=== PATIENT | female | born 1990 | race Caucasian/White ===

== ENCOUNTER → 2016-05-22 | Outpatient (CLI) | payer OTHER ==
[~2016-05-22] MED LIST: CNC/54 PO; LEVOTAB3 PO; SERT100T PO
== END | disposition home or self-care (01) ==
LOC: C.PAPS 09:44
PROVIDERS: ATTEND Obstetrics & Gynecology
DX: D06.9 Carcinoma in situ of cervix, unspecified (principal); Z12.4 Encounter for screening for malignant neoplasm of cervix

== ENCOUNTER → 2016-11-04 | Outpatient (CLI) | payer OTHER | END | disposition home or self-care (01) | LOC: C.PAPS 08:29 | PROVIDERS: ATTEND Obstetrics & Gynecology | DX: D06.9 Carcinoma in situ of cervix, unspecified (principal) ==

== ENCOUNTER 2017-07-04 04:42 | Emergency (ER) | payer OTHER ==
[~2017-07-04] VITALS: Ht 152.4 cm; Wt 62.1 kg
[2017-07-04 04:53] VITALS: TEMP 36.8; Ht 152.4 cm; Wt 62.1 kg
[2017-07-04] MEDS ORDERED: CEPHALEXIN 500MG HOME PACK 1 EA BTL PO ONE (05:15)
[2017-07-04] MEDS ORDERED: PHENAZOPYRIDINE HOME PACK 200 MG VIAL PO ONE (05:15)
[2017-07-04] MEDS ORDERED: BUPRTAB51 PO (05:47)
[2017-07-04] MEDS ORDERED: PHEN-876 PO (06:20)
[2017-07-04] MEDS ORDERED: CEPH500C PO (06:20)
[2017-07-04] MEDS ORDERED: KETOROLAC TROMETHAMINE 60 MG/2 ML VIAL IM STA (06:21)
--- NOTE | 2017-07-04 06:28 | EMERGENCY ROOM VISIT NOTE ---
History First contact with patient: 04:53 Chief Complaint: URINARY SYMPTOMS Stated Complaint: UTI SYMPTOMS,BLOOD/TISSUE IN URINE Nursing Triage Summary: pt has pmhx of uti, pt c/o urgency, frequency, burning, bladder hurts, peeing blood and tissue History of Present Illness The patient is a 26 year old female who presents to the Emergency Room with complaints of urinary frequency, urgency and dysuria with hematuria for the past day. Patient has a history of UTIs. She has had 2 this past year. Patient denies back pain, fevers, vomiting,Nausea, vomiting, flank pain, vaginal itching or discharge. Patient took an Pyridium. Review of Systems A 6 system review of systems was completed with positives and pertinent negatives listed in the HPI. Past Medical/Surgical History UTIs Social History Smoking Status: Never Smoker Smokeless Tobacco Use: No Marital Status: in relationship Current/Historical Medications Scheduled Bupropion (Wellbutrin-Xl), 300 MG PO QAM Cephalexin Monohydrate (Keflex), 500 MG PO BID Levonorgestrel-Ethinyl Estradi (Jolessa), 1 TAB PO QAM Methylphenidate Hcl (Concerta), 54 MG PO QAM Phenazopyridine HCl (Pyridium), 200 MG PO TID Physical Exam Vital Signs Date Time Temp Pulse Resp B/P (MAP) Pulse Ox O2 Delivery O2 Flow Rate FiO2 18 04:53 36.8 90 18 145/88 97 Room Air Physical Exam VITALS: Vitals are noted on the nurse's note and reviewed by myself. Vital signs stable. GENERAL: Pleasant female, in no acute distress, nondiaphoretic, well-developed well-nourished. SKIN: Capillary reflex less than 2 seconds. HEENT: Normocephalic. PERRLA. EOMI. Nares patent. Mucous membranes moist. Neck is supple without nuchal rigidity. HEART: Regular rate and rhythm without murmurs gallops or rubs. LUNGS: Clear to auscultation bilaterally without wheezes, rales or rhonchi. No retractions or accessory muscle use. ABDOMEN: Positive bowel sounds x 4. Normal tympanic percussion. Soft, nontender, without masses or organomegaly. Mock sign negative. No guarding or rebound tenderness no CVA tenderness. MUSCULOSKELETAL: No gross musculoskeletal defects. No pedal edema. No calf tenderness. NEURO: Patient was alert and oriented to person place and time. Normal sensation to light and sharp touch. No focal neurological deficits. Medical Decision & Procedures Laboratory Results Test 07/04/17 05:10 Urine Color ORANGE Urine Appearance CLOUDY (CLEAR) Urine pH (4.5-7.5) Urine Specific [place] 1.007 (1.000-1.030) Urine Protein NEG (NEG) Urine Glucose (UA) (NEG) Urine Ketones (NEG) Urine Occult Blood (NEG) Urine Nitrite (NEG) Urine Bilirubin (NEG) Urine Urobilinogen (NEG) Urine Leukocyte Esterase (NEG) Urine RBC 10-30 /hpf (0-4) Urine WBC 10-30 /hpf (0-5) Urine Epithelial Cells >30 /lpf (0-5) Urine Bacteria 1+ (NEG) Urine Test NEG (NEG) ED Course Prior records reviewed and summarized as above. Triage Nursing notes reviewed. Additional history obtained from boyfriend. The patient's history was concerning for urinary symptom Differential diagnosis: Etiologies such as UTI, cystitis, renal colic, pyelonephritis as well as others were entertained.. Physical examination: The physical examination was consistent with UTI ER treatment provided: Keflex, Pyridium On reassessment the patient felt better. Diagnostics interpreted by me: The labs revealed urine consistent with infection and sent for culture. Patient was also symptomatic. Negative hCG This appears to be UTI. Patient is afebrile nontoxic. She had no CVA tenderness. She is advised to take medications as directed and drink plenty of fluids to flush her bladder. She is advised follow-up family care in a few days here in the ER sooner for abdominal pain, fevers, vomiting, flank pain, worsening signs or symptoms or as needed. By the evaluation outlined above emergent etiologies such as pyelonephritis, as well as others were deemed relatively unlikely. The pt informed about the findings as listed above. All questions were answered and pleased with the treatment. Return instructions were outlined and the patient was discharged in stable condition. Outpatient prescription management: Keflex, Pyridium Referral: The patient was referred back to primary care physician for follow-up in 2 to 3 days for a recheck of the current condition. The chart was completed utilizing [employer] voice recognition software. Grammatical errors, random word insertions, pronoun errors, and incomplete sentences are an occassional consequence of this system due to software limitations, ambient noise, and hardware issues. Any formal questions or concerns about the content, text, or information contained within the body of this dictation should be directly addressed to the physician carpenter assistant installer for clarification. Medical Decision As above Medication Reconcilliation Current Medication List: was personally reviewed by me Blood Pressure Screening Patient's blood pressure: Normal blood pressure Impression Primary Impression: Urinary tract infection Departure Information Dispostion Home / Self-Care Condition GOOD Prescriptions Phenazopyridine HCl (Pyridium) 200 Mg Tab 200 MG PO TID for 2 Days, #6 TAB Prov: Betty Siddiqi .MARYLU 07/04/17 Cephalexin Monohydrate (Keflex) 500 Mg Cap 500 MG PO BID for 7 Days, #14 CAP Prov: Betty Siddiqi .MARYLU 07/04/17 Referrals Darya Hopkins C.R.N.P. (PCP) Patient Instructions My [facility] Additional Instructions Keflex 500 mg: Take one pill twice daily for 7 days for your urine infection. All antibiotics can cause diarrhea. If this occurs and you feel worse or it does not resolve in 1-2 days follow up with your doctor or return to the Emergency Department as this could be signs of serious underlying problems. Any medication can cause an allergic reaction, stop the pills immediately and return to the ER for rash, hives, breathing difficulties, or swelling. Pyridium 200mg: Take one pill three times daily as needed for urinary discomfort. This medication will turn your urine orange. This is normal and nothing to be concerned about. Ibuprofen(Motrin, Advil) may be used for fever or pain. Use 600mg every six hours as needed. Take with food. Avoid using more than 2400mg in a 24 hour period. Do not use 2400mg per day for more than three consecutive days without physician direction. Prolonged inappropriate use can lead to stomach upset or ulcers. (AND/OR) Acetaminophen(Tylenol) may be used for fever or pain. Use 1000mg every six hours as needed. Avoid using more than 3000mg in a 24 hour period. Rest and drink plenty of fluids as tolerated. Slow sips of water or sports drinks are recommended instead of large amounts all at once. Continue current medications. Once your stomach is settled start with a clear liquid diet (jello, soup broth, etc.) and then advance as tolerated. You should avoid full, heavy meals for about 24 hrs from the time your symptoms resolved. Return to the ER immediately for worsening or persistent abdominal/back pain, vomiting, fevers, worsening of your condition, or as needed. Follow up with your primary physician within 2-3 days for a recheck of the current condition. Problem Qualifiers Primary Impression: Urinary tract infection Urinary tract infection type: acute cystitis Hematuria presence: with hematuria Qualified Codes: N30.01 - Acute cystitis with hematuria
[2017-07-04 06:51] VITALS: BP 133/78; PULSE 82; O2SAT 99
--- NOTE | 2017-07-06 11:17 | Pharmacy Progress Note ---
ED Pharmacist Culture FollowUp Date of Service: July 06, 2017. Patient was sent home with a prescription for Cephalexin 500 mg BID x 7 days, which should cover the E. coli growing from the patient's urine culture.
== END 2017-07-04 06:51 | disposition home or self-care (01) ==
LOC: C.EDB 04:43
DX: N39.0 Urinary tract infection, site not specified (principal); Z79.899 Other long term (current) drug therapy

== ENCOUNTER 2024-05-20 07:56 | Inpatient (IN) ==
--- NOTE | 2024-05-20 08:14 | History & Physical Report ---
Date of Service May 20, 2024 Assessment & Plan (1) Insulin controlled gestational diabetes mellitus (GDM) during : (2) Obesity affecting , antepartum: (3) Encounter for induction of labor: Plan -Vital Signs ; BP: 153/83 likely contributed by anxiety; will monitor - Category Tracing I -Will start Pitocin -Epidural when she desires -GBS: negative -Labs ordered Admission and Anticipated Discharge Date Admission Date: May 20, 2024 History of Present Illness Chief Complaint: Induction of labor Primary Care Provider: SILAS Friend Patient is a 33 yo female currently at 39+2 WGA with an SERGO 05/26/24 as determined by LMP who is here for induction. Her was complicated by Obesity, and Gestational Diabetes Mellitus Contractions present; movement present; no fluid loss; no bloody show External FHT and external uterine monitors used; category I tracing; normal FHT variability Had regular appointments with OB. Allergies Allergy/AdvReac Type Severity Reaction Status Date / Time latex Allergy Mild Hives Verified 05/20/24 08:40 Sulfa (Sulfonamide Allergy Unknown Unknown Verified 05/20/24 08:40 Antibiotics) adhesive tape AdvReac Mild Rash Verified 05/19/24 08:35 Home Medications Medication Instructions Recorded Confirmed Type prenat.vits,ok,xpi-zhye-xbfey 1 tab PO 1XD 10/09/23 05/20/24 History acetone (urine) test (Ketone Urine #50 ea 03/25/24 05/19/24 Rx Test strips) blood sugar diagnostic (OneTouch #150 ea 03/25/24 05/19/24 Rx Verio test strips) blood-glucose meter (OneTouch #1 ea 03/25/24 05/19/24 Rx Verio Reflect Meter) blood-glucose sensor (Dexcom G7 #3 ea 03/25/24 05/19/24 Rx Sensor device) lancets 33 gauge (OneTouch Delica #150 ea 03/25/24 05/19/24 Rx Plus Lancet) pen needle, diabetic 32 gauge x #100 ea 04/05/24 05/19/24 Rx 5/32" (BD Ultra-Fine Aura Pen Needle) insulin NPH isoph U-100 human 100 55 unit subcut .at bed time 05/20/24 05/20/24 History unit/mL (3 mL) subcutaneous pen (Novolin N FlexPen) Past Med/Surg History Problem List (Updated 05/20/24 @ 10:12 by Jennifer Mas MD, FACOG) Encounter for induction of labor Obesity affecting , antepartum Insulin controlled gestational diabetes mellitus (GDM) during Gestational diabetes mellitus (GDM) affecting , antepartum Encounter for anatomic survey Supervision of normal intrauterine in primigravida Alcohol intoxication (Acute) Medical History (Updated 05/20/24 @ 10:12 by Jennifer Mas MD, FACOG) Asthma reports had asthma as a child. does not have inhaler or take any medication for it. ADHD previously on concerta. stopped with positive test Surgical History Status post colposcopy S/P colonoscopy H/O oral surgery Family History Father Heart disease Grandmother (Maternal) Glioblastoma Social History (Updated 05/20/24 @ 08:43 by Zakiya De La Rosa RN) Smoking Status: Never smoker Do You Dip or Chew Tobacco: No; Hx Alcohol Use: No Hx Substance Use: No Preferred Language: Croatian Communication Ability: Effective Visual Impairment: Limited Hearing Ability: Normal Golf Shoe Spike Assembler Required: No Beliefs That Will Affect Care: None marital status: marital status details: Winston (31) [phone] Current Living Situation: Spouse Current Living Situation Comment: lives with spouse, 2 dogs, 1 cat, spouse changes litter. current occupational status: unemployed Other Information That Helps Us Care for You: No Feels Safe at Home: Yes Safety Concerns: Feels Safe At This Time Diet: low carbohydrate and regular Assistive Devices: Glasses Review of Systems Review of Systems: As per HPI Physical Exam Physical Exam: General: Alert and oriented. No acute distress CV: Regular rate and rhythm. No murmurs. Respiratory: CTA bilaterally. No rhonchi, wheezes, or crackles. No increased work of breathing. Abdomen: Gravid; Soft, nontender upon palpation Lower extremities: No LE edema. No deep calf pain. Mayco's negative bilaterally. Supervising Physician Co-Signing Physician Notes Resident Physician Supervision Note: I was present with Dr. Silver during the history and exam. I discussed the case with the resident and agree with the findings and plan as documented in the note. Any exceptions or clarifications are listed here: 33yo at 39+wks ega for planned induction for GDM on insulin, also suspected LGA. She denies rom, or vb. +FM. Did have some ctx overnight. Desires to proceed with induction, aware of plan for pitocin and will try to place ramirez ripening balloon after exam noted unchanged from yesterday, sve ft/100/-2. Exam, abd soft gravid nt efw 8- 9#. fhts categ 1. toco irregular. PROCEDURE: sse cx visualized, grasped on ant lip with ring forcep, ramirez not able to be passed through os and procedure aborted. Admit, labs, bsgs per order. fhts categ 1. start pitocin, arom when appropriate. Documented By: Jennifer Mas MD, FACOG
[2024-05-20] MEDS ORDERED: LIDOCAINE 1% LOCAL 20 ML VIAL INFIL PRN (08:56)
[2024-05-20] MEDS ORDERED: CALCIUM CARBONATE 500 MG CHEWABLE TAB PO PRN (08:56)
[2024-05-20] MEDS ORDERED: OXYTOCIN 30 UNITS/NSS 30 UNITS/500 ML BAG IV PRN (08:56)
[2024-05-20] MEDS: LACTATED RINGER'S 1,000 ML IV PRN (09:23)
[2024-05-20] MEDS: OXYTOCIN 30 UNITS/NSS 30 UNITS/500 ML BAG IV PRN (09:24)
[2024-05-20 10:11] LABS: Hematocrit (blood only) 35.3 % (37.0-47.0); Hemoglobin 11.9 g/dl (12.0-16.0); Mean Corpuscular Hemoglobin 28.5 pg (25.0-34.0); Mean Corpuscular Hgb Conc 33.7 g/dL (32.0-36.0); Mean Corpuscular Volume 84.7 fL (80.0-100.0); Platelet Count 326 K/uL (130-400); RDW Coefficient of Variation 13.2 % (11.5-14.5); RDW Standard Deviation 41.1 fL (36.4-46.3); Red Blood Count 4.17 M/uL (4.20-5.40); White Blood Count 17.14 K/ul (4.8-10.8)
[2024-05-20 10:32] LABS: Albumin Globulin Ratio 1.2 (0.9-2); Albumin Level 3.8 gm/dl (3.4-5.0); BUN Creatinine Ratio 13.3 (10-20); Bilirubin Direct 0.1 mg/dl (0-0.2); Bilirubin,Total 0.3 mg/dl (0.2-1.0); Calcium 9.4 mg/dl (8.6-10.3); Creatinine Clr Calc Pharmacy 104.2 ml/min; Globulin 3.3 gm/dl (2.5-4.0); Potassium 4.1 mmol/L (3.5-5.1); Total Protein 7.1 gm/dl (6.0-8.3)
[2024-05-20] MEDS ORDERED: SODIUM CHLORIDE 0.9% 100 ML IV PRN (10:48)
[2024-05-20] MEDS: ONDANSETRON INJ 2 MG/ML 2 ML VIAL IV PRN (16:24)
[2024-05-20] MEDS ORDERED: LIDOCAINE 2% MPF LOCAL 5 ML VIAL EPI PRN (16:53)
[2024-05-20] MEDS ORDERED: ONDANSETRON INJ 2 MG/ML 2 ML VIAL IV PRN (16:53)
[2024-05-20] MEDS ORDERED: BUPIVACAINE 0.25% PF 30 ML VIAL EPI PRN (16:53)
[2024-05-20] MEDS ORDERED: ePHEDrine sulfate 50 MG/ML AMP IV PRN (16:53)
[2024-05-20] MEDS ORDERED: ROPIVACAINE 0.5% PF 5 MG/ML 20 ML VIAL EPI PRN (16:53)
[2024-05-20] MEDS ORDERED: NALBUPHINE HCL INJ 10 MG/ML AMP IV PRN (16:53)
[2024-05-20] MEDS ORDERED: fentaNYL citrate PF 100 MCG/2 ML VIAL EPI PRN (16:53)
[2024-05-20] MEDS ORDERED: diphenhydrAMINE 50 MG/ML VIAL IV PRN (16:53)
[2024-05-20] MEDS ORDERED: SODIUM CHLORIDE 0.9% PF INJ 10 ML VIAL EPI PRN (16:53)
--- NOTE | 2024-05-20 16:55 | Anesthesiology Consultation ---
Date of Service May 20, 2024 Assessment & Plan (1) Encounter for pre-operative examination: Chart Review Chart Review: Patient NOT seen in Pre Admission Testing and Acceptable Risk for Labor Epidural Consults Requested none History Height/Weight Height: 5 ft Weight: 99.79 kg Allergies Allergy/AdvReac Type Severity Reaction Status Date / Time latex Allergy Mild Hives Verified 05/20/24 08:40 Sulfa (Sulfonamide Allergy Unknown Unknown Verified 05/20/24 08:40 Antibiotics) adhesive tape AdvReac Mild Rash Verified 05/19/24 08:35 Medications Home Medications Medication Instructions Recorded Confirmed Last Taken prenat.vits,ok,cpr-crdr-alfah 1 tab PO 1XD 10/09/23 05/20/24 05/19/24 acetone (urine) test (Ketone Urine #50 ea 03/25/24 05/19/24 Unknown Test strips) blood sugar diagnostic (OneTouch #150 ea 03/25/24 05/19/24 Unknown Verio test strips) blood-glucose meter (OneTouch #1 ea 03/25/24 05/19/24 Unknown Verio Reflect Meter) blood-glucose sensor (Dexcom G7 #3 ea 03/25/24 05/19/24 Unknown Sensor device) lancets 33 gauge (OneTouch Delica #150 ea 03/25/24 05/19/24 Unknown Plus Lancet) pen needle, diabetic 32 gauge x #100 ea 04/05/24 05/19/24 Unknown 5/32" (BD Ultra-Fine Aura Pen Needle) insulin NPH isoph U-100 human 100 55 unit subcut .at bed time 05/20/24 05/20/24 05/19/24 21:00 unit/mL (3 mL) subcutaneous pen (Novolin N FlexPen) Active Medications Generic Name Dose Route Start Last Admin Trade Name Freq PRN Reason Stop Dose Admin Lactated Ringer's 1,000 mls @ 125 mls/hr 05/20/24 08:56 05/20/24 17:00 Lr IV 05/21/24 08:55 125 mls/hr .Q8H PRN Administration L&D Protocol Protocol Oxytocin 30 units in 500 mls @ 15 mls/hr 05/20/24 08:56 05/20/24 17:15 Pitocin 30 Units/Nss IV 05/22/24 08:55 0.9 units/hr .Q24H PRN 15 mls/hr Labor Induction/Augmentation Titration Protocol 0.9 UNITS/HR Ondansetron HCl 4 mg 05/20/24 16:15 05/20/24 16:24 Ondansetron Inj 2 Mg/Ml 2 Ml Vial IV 06/19/24 16:14 4 mg Q4H PRN Administration Nausea Past Medical History Medical History (Updated 05/20/24 @ 16:55 by Miguel Deshpande MD) Encounter for pre-operative examination Asthma reports had asthma as a child. does not have inhaler or take any medication for it. ADHD previously on concerta. stopped with positive test Exercise / Class Metabolic Activity II 4-5 Yardwork/Stairs/Walk up hill Past Family History Family History Father Heart disease Grandmother (Maternal) Glioblastoma Past Surgical History Surgical History Status post colposcopy S/P colonoscopy H/O oral surgery Social History Smoking Status: Never smoker Do You Dip or Chew Tobacco: No Hx Alcohol Use: No Hx Substance Use: No Physical Exam Vital Signs Last Vital Signs Temp 37.0 C 05/20/24 17:00 Pulse 72 05/20/24 17:37 Resp 18 05/20/24 17:00 BP 152/69 H 05/20/24 17:37 Pulse Ox 99 05/20/24 17:36 Testing Laboratory Results 05/20/24 09:26 05/20/24 09:26 Blood Type A Positive 05/20/24 09:26 Antibody Screen NEGATIVE 05/20/24 09:26 05/20/24 05/20/24 05/20/24 15:54 14:35 12:31 POC Glucose 116 H 119 H 85 05/20/24 08:06 POC Glucose 138 H
--- NOTE | 2024-05-20 16:55 | Labor Progress Brief Note ---
Date of Service May 20, 2024 Subjective feeling pain with ctx, states she is exhausted Assessment & Plan (1) Encounter for induction of labor: (2) Insulin controlled gestational diabetes mellitus (GDM) during : Plan no cx change. suspect adhesions but pt unable to tolerate attempt to manually lyse, which is understandable. given her exhaustion as well, rec epidural. she has been hesitant to consider. she will consider and let me know. Admission and Anticipated Discharge Date Admission Date: May 20, 2024 Physical Exam Constitutional: WD/WN, vitals as above Genitourinary: Manual OB Exam: + cervical dilation fingertip (feels scarred, tried to breakdown but pt cannot tolerate), + cervical effacement 100%, + station -1 and + amniotic fluid (srom) clear OB Exam Monitor Tracing: + external FHT monitor used, + external uterine monitor used (q3-4), + category I and + normal FHT variability Results & Data Vital Signs (Past 12 Hours) Vital Signs Temp Pulse Resp BP 05/20/24 16:39 66 05/20/24 16:39 135/64 05/20/24 16:24 68 05/20/24 16:24 150/67 H 05/20/24 16:09 74 05/20/24 16:09 163/78 H 05/20/24 15:54 75 05/20/24 15:54 137/80 05/20/24 15:40 68 05/20/24 15:40 169/78 H 05/20/24 15:26 72 05/20/24 15:26 183/81 H 05/20/24 14:39 74 05/20/24 14:39 148/74 H 05/20/24 14:25 75 05/20/24 14:25 137/76 05/20/24 14:20 98.4 F 05/20/24 14:09 84 05/20/24 14:09 140/67 05/20/24 13:54 85 05/20/24 13:54 141/68 H 05/20/24 13:39 74 05/20/24 13:39 136/63 05/20/24 13:24 74 05/20/24 13:24 148/72 H 05/20/24 12:54 76 05/20/24 12:54 140/78 05/20/24 12:39 78 05/20/24 12:39 133/76 05/20/24 12:25 75 05/20/24 12:25 137/79 05/20/24 12:10 67 05/20/24 12:10 132/70 05/20/24 11:54 72 05/20/24 11:54 142/63 H 05/20/24 11:39 70 05/20/24 11:39 135/74 05/20/24 11:25 71 05/20/24 11:25 144/74 H 05/20/24 11:09 68 05/20/24 11:09 139/80 05/20/24 11:00 16 05/20/24 11:00 98.1 F 16 05/20/24 10:55 71 05/20/24 10:55 146/74 H 05/20/24 10:40 72 05/20/24 10:40 141/75 H 05/20/24 10:24 71 05/20/24 10:24 129/78 05/20/24 10:09 73 05/20/24 10:09 121/59 L 05/20/24 09:54 88 05/20/24 09:54 154/74 H 05/20/24 09:25 81 05/20/24 09:25 135/76 05/20/24 09:24 87 05/20/24 09:24 135/75 05/20/24 08:45 91 H 18 153/83 H 05/20/24 08:27 91 H 153/83 H 05/20/24 08:17 90 167/82 H 05/20/24 08:10 18 05/20/24 08:10 98.4 F 18 Coding Level of Care Code None Diagnoses Encounter for induction of labor Z34.90 Insulin controlled gestational diabetes mellitus (GDM) during O24.414
[2024-05-20] MEDS: SODIUM CHLORIDE 0.9% PF INJ 10 ML VIAL EPI STA (17:15)
[2024-05-20] MEDS: SODIUM CHLORIDE 0.9% PF INJ 10 ML VIAL ONE (17:16)
[2024-05-20] MEDS: LIDOCAINE 2%/EPINEPHRINE 1:200,000 20 ML PF ONE (17:16)
[2024-05-20] MEDS: BUPIVACAINE 0.25% PF 30 ML VIAL ONE (17:16)
[2024-05-20] MEDS: fentANYL 2 MCG/ML BUPIVacaine 0.125%-NSS 100ML BAG ONE (17:16)
[2024-05-20] MEDS: BUPIVACAINE 0.25% PF 30 ML VIAL EPI STA (17:16)
[2024-05-20] MEDS: fentaNYL citrate PF 100 MCG/2 ML VIAL ONE (17:16)
[2024-05-20] MEDS: ePHEDrine sulfate 50 MG/ML AMP ONE (17:16)
[2024-05-20] MEDS: fentaNYL citrate PF 100 MCG/2 ML VIAL EPI STA (17:16)
[2024-05-20] MEDS: LIDOCAINE 2%/EPINEPHRINE 1:200,000 20 ML PF EPI STA (17:45)
[2024-05-20] MEDS: fentANYL 2 MCG/ML BUPIVacaine 0.125%-NSS 100ML BAG EPI PRN (17:45)
--- NOTE | 2024-05-20 18:51 | Labor Progress Brief Note ---
Date of Service May 20, 2024 Subjective pt now comfortable with epidural Assessment & Plan (1) Encounter for induction of labor: (2) Insulin controlled gestational diabetes mellitus (GDM) during : Plan will see how cx progresses from here. enc pt to rest. categ 1 fhts. c/w pit. Admission and Anticipated Discharge Date Admission Date: May 20, 2024 Physical Exam Constitutional: WD/WN, vitals as above Genitourinary: Manual OB Exam: + cervical dilation 4 cm (adhesions broken down), + cervical effacement 100% and + station -1 OB Exam Monitor Tracing: + external FHT monitor used, + external uterine monitor used (q2-4, pit at 19), + category I (+scalp stim response) and + normal FHT variability Results & Data Vital Signs (Past 12 Hours) Vital Signs Temp Pulse Resp BP Pulse Ox 05/20/24 18:46 99 05/20/24 18:46 73 05/20/24 18:41 99 05/20/24 18:41 66 05/20/24 18:39 73 05/20/24 18:39 113/56 L 05/20/24 18:36 99 05/20/24 18:36 76 05/20/24 18:31 99 05/20/24 18:31 83 05/20/24 18:26 98 05/20/24 18:26 69 05/20/24 18:23 67 05/20/24 18:23 114/59 L 05/20/24 18:21 99 05/20/24 18:21 71 05/20/24 18:16 99 05/20/24 18:16 76 05/20/24 18:11 99 05/20/24 18:11 78 05/20/24 18:08 80 05/20/24 18:08 138/69 05/20/24 18:06 98 05/20/24 18:06 82 05/20/24 18:01 99 05/20/24 18:01 74 05/20/24 17:56 99 05/20/24 17:56 79 05/20/24 17:53 75 05/20/24 17:53 133/63 05/20/24 17:51 98 05/20/24 17:51 71 05/20/24 17:51 70 05/20/24 17:51 133/61 05/20/24 17:49 65 05/20/24 17:49 137/60 05/20/24 17:46 98 05/20/24 17:46 77 05/20/24 17:46 160/66 H 05/20/24 17:43 59 L 05/20/24 17:43 142/63 H 05/20/24 17:41 98 05/20/24 17:41 79 05/20/24 17:37 72 05/20/24 17:37 152/69 H 05/20/24 17:36 99 05/20/24 17:36 66 05/20/24 17:35 70 05/20/24 17:35 142/69 H 05/20/24 17:31 99 05/20/24 17:31 84 05/20/24 17:26 99 05/20/24 17:26 64 05/20/24 17:21 99 05/20/24 17:21 66 05/20/24 17:16 99 05/20/24 17:16 70 05/20/24 17:12 64 05/20/24 17:12 152/69 H 05/20/24 17:11 100 05/20/24 17:11 63 05/20/24 17:00 18 05/20/24 17:00 98.6 F 18 05/20/24 16:56 63 05/20/24 16:56 158/78 H 05/20/24 16:39 66 05/20/24 16:39 135/64 05/20/24 16:24 68 05/20/24 16:24 150/67 H 05/20/24 16:09 74 05/20/24 16:09 163/78 H 05/20/24 15:54 75 05/20/24 15:54 137/80 05/20/24 15:40 68 05/20/24 15:40 169/78 H 05/20/24 15:26 72 05/20/24 15:26 183/81 H 05/20/24 14:39 74 05/20/24 14:39 148/74 H 05/20/24 14:25 75 05/20/24 14:25 137/76 05/20/24 14:20 98.4 F 05/20/24 14:09 84 05/20/24 14:09 140/67 05/20/24 13:54 85 05/20/24 13:54 141/68 H 05/20/24 13:39 74 05/20/24 13:39 136/63 05/20/24 13:24 74 05/20/24 13:24 148/72 H 05/20/24 12:54 76 05/20/24 12:54 140/78 05/20/24 12:39 78 05/20/24 12:39 133/76 05/20/24 12:25 75 05/20/24 12:25 137/79 05/20/24 12:10 67 05/20/24 12:10 132/70 05/20/24 11:54 72 05/20/24 11:54 142/63 H 05/20/24 11:39 70 05/20/24 11:39 135/74 05/20/24 11:25 71 05/20/24 11:25 144/74 H 05/20/24 11:09 68 05/20/24 11:09 139/80 05/20/24 11:00 16 05/20/24 11:00 98.1 F 16 05/20/24 10:55 71 05/20/24 10:55 146/74 H 05/20/24 10:40 72 05/20/24 10:40 141/75 H 05/20/24 10:24 71 05/20/24 10:24 129/78 05/20/24 10:09 73 05/20/24 10:09 121/59 L 05/20/24 09:54 88 05/20/24 09:54 154/74 H 05/20/24 09:25 81 05/20/24 09:25 135/76 05/20/24 09:24 87 05/20/24 09:24 135/75 05/20/24 08:45 91 H 18 153/83 H 05/20/24 08:27 91 H 153/83 H 05/20/24 08:17 90 167/82 H 05/20/24 08:10 18 05/20/24 08:10 98.4 F 18 Coding Level of Care Code None Diagnoses Encounter for induction of labor Z34.90 Insulin controlled gestational diabetes mellitus (GDM) during O24.414
--- NOTE | 2024-05-20 21:24 | Labor Progress Brief Note ---
Date of Service May 20, 2024 Subjective comfortable with epidural Assessment & Plan (1) Encounter for induction of labor: (2) Insulin controlled gestational diabetes mellitus (GDM) during : (3) Obesity affecting , antepartum: Plan good cx change. fhts categ 1. c/w pitocin. Admission and Anticipated Discharge Date Admission Date: May 20, 2024 Physical Exam Constitutional: WD/WN, vitals as above Genitourinary: Manual OB Exam: + cervical dilation (rim), + cervical effacement 100% and + station + 1 OB Exam Monitor Tracing: + external FHT monitor used, + external uterine monitor used, + category I and + normal FHT variability Results & Data Vital Signs (Past 12 Hours) Vital Signs Temp Pulse Resp BP Pulse Ox 05/20/24 21:16 100 05/20/24 21:16 99 H 05/20/24 21:11 99 05/20/24 21:11 72 05/20/24 21:09 79 05/20/24 21:09 127/65 05/20/24 21:06 98 05/20/24 21:06 76 05/20/24 21:01 99 05/20/24 21:01 72 05/20/24 21:00 20 05/20/24 21:00 98.4 F 20 05/20/24 20:56 98 05/20/24 20:56 72 05/20/24 20:53 82 05/20/24 20:53 125/72 05/20/24 20:51 99 05/20/24 20:51 66 05/20/24 20:46 99 05/20/24 20:46 72 05/20/24 20:41 98 05/20/24 20:41 84 05/20/24 20:39 90 05/20/24 20:39 123/64 05/20/24 20:36 99 05/20/24 20:36 75 05/20/24 20:31 98 05/20/24 20:31 69 05/20/24 20:30 18 05/20/24 20:30 18 05/20/24 20:26 99 05/20/24 20:26 85 05/20/24 20:23 78 05/20/24 20:23 119/58 L 05/20/24 20:21 100 05/20/24 20:21 68 05/20/24 20:16 99 05/20/24 20:16 85 05/20/24 20:11 99 05/20/24 20:11 66 05/20/24 20:09 77 05/20/24 20:09 110/55 L 05/20/24 20:06 100 05/20/24 20:06 75 05/20/24 20:01 100 05/20/24 20:01 73 05/20/24 19:56 99 05/20/24 19:56 72 05/20/24 19:54 63 05/20/24 19:54 102/54 L 05/20/24 19:51 100 05/20/24 19:51 72 05/20/24 19:46 99 05/20/24 19:46 67 05/20/24 19:41 99 05/20/24 19:41 71 05/20/24 19:40 67 05/20/24 19:40 107/54 L 05/20/24 19:36 99 05/20/24 19:36 70 05/20/24 19:31 100 05/20/24 19:31 75 05/20/24 19:30 16 05/20/24 19:30 16 05/20/24 19:26 99 05/20/24 19:26 77 05/20/24 19:24 77 05/20/24 19:24 119/58 L 05/20/24 19:21 100 05/20/24 19:21 72 05/20/24 19:16 100 05/20/24 19:16 72 05/20/24 19:15 18 05/20/24 19:15 98.6 F 18 05/20/24 19:11 98 05/20/24 19:11 67 05/20/24 19:08 68 05/20/24 19:08 109/58 L 05/20/24 19:06 99 05/20/24 19:06 67 05/20/24 19:01 98 05/20/24 19:01 62 05/20/24 18:56 100 05/20/24 18:56 84 05/20/24 18:53 66 05/20/24 18:53 111/59 L 05/20/24 18:51 99 05/20/24 18:51 63 05/20/24 18:46 99 05/20/24 18:46 73 05/20/24 18:41 99 05/20/24 18:41 66 05/20/24 18:39 73 05/20/24 18:39 113/56 L 05/20/24 18:36 99 05/20/24 18:36 76 05/20/24 18:31 99 05/20/24 18:31 83 05/20/24 18:26 98 05/20/24 18:26 69 05/20/24 18:23 67 05/20/24 18:23 114/59 L 05/20/24 18:21 99 05/20/24 18:21 71 05/20/24 18:16 99 05/20/24 18:16 76 05/20/24 18:11 99 05/20/24 18:11 78 05/20/24 18:08 80 05/20/24 18:08 138/69 05/20/24 18:06 98 05/20/24 18:06 82 05/20/24 18:01 99 05/20/24 18:01 74 05/20/24 17:56 99 05/20/24 17:56 79 05/20/24 17:53 75 05/20/24 17:53 133/63 05/20/24 17:51 98 05/20/24 17:51 71 05/20/24 17:51 70 05/20/24 17:51 133/61 05/20/24 17:49 65 05/20/24 17:49 137/60 05/20/24 17:46 98 05/20/24 17:46 77 05/20/24 17:46 160/66 H 05/20/24 17:43 59 L 05/20/24 17:43 142/63 H 05/20/24 17:41 98 05/20/24 17:41 79 05/20/24 17:37 72 05/20/24 17:37 152/69 H 05/20/24 17:36 99 05/20/24 17:36 66 05/20/24 17:35 70 05/20/24 17:35 142/69 H 05/20/24 17:31 99 05/20/24 17:31 84 05/20/24 17:26 99 05/20/24 17:26 64 05/20/24 17:21 99 05/20/24 17:21 66 05/20/24 17:16 99 05/20/24 17:16 70 05/20/24 17:12 64 05/20/24 17:12 152/69 H 05/20/24 17:11 100 05/20/24 17:11 63 05/20/24 17:00 18 05/20/24 17:00 98.6 F 18 05/20/24 16:56 63 05/20/24 16:56 158/78 H 05/20/24 16:39 66 05/20/24 16:39 135/64 05/20/24 16:24 68 05/20/24 16:24 150/67 H 05/20/24 16:09 74 05/20/24 16:09 163/78 H 05/20/24 15:54 75 05/20/24 15:54 137/80 05/20/24 15:40 68 05/20/24 15:40 169/78 H 05/20/24 15:26 72 05/20/24 15:26 183/81 H 05/20/24 14:39 74 05/20/24 14:39 148/74 H 05/20/24 14:25 75 05/20/24 14:25 137/76 05/20/24 14:20 98.4 F 05/20/24 14:09 84 05/20/24 14:09 140/67 05/20/24 13:54 85 05/20/24 13:54 141/68 H 05/20/24 13:39 74 05/20/24 13:39 136/63 05/20/24 13:24 74 05/20/24 13:24 148/72 H 05/20/24 12:54 76 05/20/24 12:54 140/78 05/20/24 12:39 78 05/20/24 12:39 133/76 05/20/24 12:25 75 05/20/24 12:25 137/79 05/20/24 12:10 67 05/20/24 12:10 132/70 05/20/24 11:54 72 05/20/24 11:54 142/63 H 05/20/24 11:39 70 05/20/24 11:39 135/74 05/20/24 11:25 71 05/20/24 11:25 144/74 H 05/20/24 11:09 68 05/20/24 11:09 139/80 05/20/24 11:00 16 05/20/24 11:00 98.1 F 16 05/20/24 10:55 71 05/20/24 10:55 146/74 H 05/20/24 10:40 72 05/20/24 10:40 141/75 H 05/20/24 10:24 71 05/20/24 10:24 129/78 05/20/24 10:09 73 05/20/24 10:09 121/59 L 05/20/24 09:54 88 05/20/24 09:54 154/74 H 05/20/24 09:25 81 05/20/24 09:25 135/76 05/20/24 09:24 87 05/20/24 09:24 135/75 Coding Level of Care Code None Diagnoses Encounter for induction of labor Z34.90 Insulin controlled gestational diabetes mellitus (GDM) during O24.414 Obesity affecting , antepartum O99.210
--- NOTE | 2024-05-21 00:39 | Labor Progress Brief Note ---
Date of Service May 21, 2024 Subjective pt not feeling much pressure Assessment & Plan (1) Encounter for induction of labor: (2) Insulin controlled gestational diabetes mellitus (GDM) during : Plan begin 2nd stage. fhts categ 1. Admission and Anticipated Discharge Date Admission Date: May 20, 2024 Physical Exam Constitutional: WD/WN, vitals as above Genitourinary: Manual OB Exam: + cervical dilation 10 cm, + cervical effacement 100% and + station + 2 OB Exam Monitor Tracing: + external FHT monitor used, + external uterine monitor used (q2 ), + category I and + normal FHT variability Results & Data Vital Signs (Past 12 Hours) Vital Signs Temp Pulse Resp BP Pulse Ox 05/21/24 00:36 100 H 100 05/21/24 00:31 85 99 05/21/24 00:26 99 H 99 05/21/24 00:24 94 H 131/63 05/21/24 00:21 77 98 05/21/24 00:16 80 98 05/21/24 00:11 82 99 05/21/24 00:09 81 132/60 05/21/24 00:06 99 H 98 05/21/24 00:01 81 98 05/21/24 00:00 16 05/21/24 00:00 16 05/20/24 23:56 99 05/20/24 23:56 76 05/20/24 23:53 80 05/20/24 23:53 139/70 05/20/24 23:51 99 05/20/24 23:51 76 05/20/24 23:46 100 05/20/24 23:46 94 H 05/20/24 23:41 99 05/20/24 23:41 82 05/20/24 23:39 78 05/20/24 23:39 131/68 05/20/24 23:36 99 05/20/24 23:36 90 05/20/24 23:31 99 05/20/24 23:31 87 05/20/24 23:30 18 05/20/24 23:30 18 05/20/24 23:26 99 05/20/24 23:26 103 H 05/20/24 23:24 90 05/20/24 23:24 135/64 05/20/24 23:21 99 05/20/24 23:21 83 05/20/24 23:16 99 05/20/24 23:16 71 05/20/24 23:11 99 05/20/24 23:11 64 05/20/24 23:09 76 05/20/24 23:09 122/61 05/20/24 23:06 99 05/20/24 23:06 83 05/20/24 23:01 99 05/20/24 23:01 84 05/20/24 23:00 16 05/20/24 23:00 98.6 F 16 05/20/24 22:56 98 05/20/24 22:56 79 05/20/24 22:55 82 05/20/24 22:55 138/65 05/20/24 22:51 98 05/20/24 22:51 80 05/20/24 22:46 99 05/20/24 22:46 84 05/20/24 22:41 98 05/20/24 22:41 80 05/20/24 22:41 81 05/20/24 22:41 139/72 05/20/24 22:36 99 05/20/24 22:36 98 H 05/20/24 22:31 98 05/20/24 22:31 85 05/20/24 22:30 18 05/20/24 22:30 18 05/20/24 22:26 98 05/20/24 22:26 76 05/20/24 22:24 73 05/20/24 22:24 126/67 05/20/24 22:21 99 05/20/24 22:21 73 05/20/24 22:16 99 05/20/24 22:16 75 05/20/24 22:11 99 05/20/24 22:11 71 05/20/24 22:10 68 05/20/24 22:10 121/65 05/20/24 22:06 99 05/20/24 22:06 80 05/20/24 22:01 98 05/20/24 22:01 80 05/20/24 22:00 16 05/20/24 22:00 16 05/20/24 21:56 99 05/20/24 21:56 74 05/20/24 21:55 68 05/20/24 21:55 124/70 05/20/24 21:51 98 05/20/24 21:51 71 05/20/24 21:46 99 05/20/24 21:46 81 05/20/24 21:41 98 05/20/24 21:41 81 05/20/24 21:40 75 05/20/24 21:40 126/73 05/20/24 21:36 98 05/20/24 21:36 77 05/20/24 21:31 98 05/20/24 21:31 78 05/20/24 21:29 18 05/20/24 21:29 18 05/20/24 21:26 99 05/20/24 21:26 89 05/20/24 21:24 85 05/20/24 21:24 136/78 05/20/24 21:21 97 05/20/24 21:21 79 05/20/24 21:16 100 05/20/24 21:16 99 H 05/20/24 21:11 99 05/20/24 21:11 72 05/20/24 21:09 79 05/20/24 21:09 127/65 05/20/24 21:06 98 05/20/24 21:06 76 05/20/24 21:01 99 05/20/24 21:01 72 05/20/24 21:00 20 05/20/24 21:00 98.4 F 20 05/20/24 20:56 98 05/20/24 20:56 72 05/20/24 20:53 82 05/20/24 20:53 125/72 05/20/24 20:51 99 05/20/24 20:51 66 05/20/24 20:46 99 05/20/24 20:46 72 05/20/24 20:41 98 05/20/24 20:41 84 05/20/24 20:39 90 05/20/24 20:39 123/64 05/20/24 20:36 99 05/20/24 20:36 75 05/20/24 20:31 98 05/20/24 20:31 69 05/20/24 20:30 18 05/20/24 20:30 18 05/20/24 20:26 99 05/20/24 20:26 85 05/20/24 20:23 78 05/20/24 20:23 119/58 L 05/20/24 20:21 100 05/20/24 20:21 68 03/21/25 20:16 99 05/20/24 20:16 85 05/20/24 20:11 99 05/20/24 20:11 66 05/20/24 20:09 77 05/20/24 20:09 110/55 L 05/20/24 20:06 100 05/20/24 20:06 75 05/20/24 20:01 100 05/20/24 20:01 73 05/20/24 19:56 99 05/20/24 19:56 72 05/20/24 19:54 63 05/20/24 19:54 102/54 L 05/20/24 19:51 100 05/20/24 19:51 72 05/20/24 19:46 99 05/20/24 19:46 67 05/20/24 19:41 99 05/20/24 19:41 71 05/20/24 19:40 67 05/20/24 19:40 107/54 L 05/20/24 19:36 99 05/20/24 19:36 70 05/20/24 19:31 100 05/20/24 19:31 75 05/20/24 19:30 16 05/20/24 19:30 16 05/20/24 19:26 99 05/20/24 19:26 77 05/20/24 19:24 77 05/20/24 19:24 119/58 L 05/20/24 19:21 100 05/20/24 19:21 72 05/20/24 19:16 100 05/20/24 19:16 72 05/20/24 19:15 18 05/20/24 19:15 98.6 F 18 05/20/24 19:11 98 05/20/24 19:11 67 05/20/24 19:08 68 05/20/24 19:08 109/58 L 05/20/24 19:06 99 05/20/24 19:06 67 05/20/24 19:01 98 05/20/24 19:01 62 05/20/24 18:56 100 05/20/24 18:56 84 05/20/24 18:53 66 05/20/24 18:53 111/59 L 05/20/24 18:51 99 05/20/24 18:51 63 05/20/24 18:46 99 05/20/24 18:46 73 05/20/24 18:41 99 05/20/24 18:41 66 05/20/24 18:39 73 05/20/24 18:39 113/56 L 05/20/24 18:36 99 05/20/24 18:36 76 05/20/24 18:31 99 05/20/24 18:31 83 05/20/24 18:26 98 05/20/24 18:26 69 05/20/24 18:23 67 05/20/24 18:23 114/59 L 05/20/24 18:21 99 05/20/24 18:21 71 05/20/24 18:16 99 05/20/24 18:16 76 05/20/24 18:11 99 05/20/24 18:11 78 05/20/24 18:08 80 05/20/24 18:08 138/69 05/20/24 18:06 98 05/20/24 18:06 82 05/20/24 18:01 99 05/20/24 18:01 74 05/20/24 17:56 99 05/20/24 17:56 79 05/20/24 17:53 75 05/20/24 17:53 133/63 05/20/24 17:51 98 05/20/24 17:51 71 05/20/24 17:51 70 05/20/24 17:51 133/61 05/20/24 17:49 65 05/20/24 17:49 137/60 05/20/24 17:46 98 05/20/24 17:46 77 05/20/24 17:46 160/66 H 05/20/24 17:43 59 L 05/20/24 17:43 142/63 H 05/20/24 17:41 98 05/20/24 17:41 79 05/20/24 17:37 72 05/20/24 17:37 152/69 H 05/20/24 17:36 99 05/20/24 17:36 66 05/20/24 17:35 70 05/20/24 17:35 142/69 H 05/20/24 17:31 99 05/20/24 17:31 84 05/20/24 17:26 99 05/20/24 17:26 64 05/20/24 17:21 99 05/20/24 17:21 66 05/20/24 17:16 99 05/20/24 17:16 70 05/20/24 17:12 64 05/20/24 17:12 152/69 H 05/20/24 17:11 100 05/20/24 17:11 63 05/20/24 17:00 18 05/20/24 17:00 98.6 F 18 05/20/24 16:56 63 05/20/24 16:56 158/78 H 05/20/24 16:39 66 05/20/24 16:39 135/64 05/20/24 16:24 68 05/20/24 16:24 150/67 H 05/20/24 16:09 74 05/20/24 16:09 163/78 H 05/20/24 15:54 75 05/20/24 15:54 137/80 05/20/24 15:40 68 05/20/24 15:40 169/78 H 05/20/24 15:26 72 05/20/24 15:26 183/81 H 05/20/24 14:39 74 05/20/24 14:39 148/74 H 05/20/24 14:25 75 05/20/24 14:25 137/76 05/20/24 14:20 98.4 F 05/20/24 14:09 84 05/20/24 14:09 140/67 05/20/24 13:54 85 05/20/24 13:54 141/68 H 05/20/24 13:39 74 05/20/24 13:39 136/63 05/20/24 13:24 74 05/20/24 13:24 148/72 H 05/20/24 12:54 76 05/20/24 12:54 140/78 05/20/24 12:39 78 05/20/24 12:39 133/76 Coding Level of Care Code None Diagnoses Encounter for induction of labor Z34.90 Insulin controlled gestational diabetes mellitus (GDM) during O24.414
[2024-05-21] MEDS: ACETAMINOPHEN 325 MG TAB PO STA (04:10)
[2024-05-21] MEDS: OXYTOCIN 30 UNITS/NSS 30 UNITS/500 ML BAG IV PRN (07:50)
[2024-05-21] MEDS: METHYLERGONOVINE MALEATE 0.2 MG/ML AMP IM ONE (07:55)
[2024-05-21] MEDS ORDERED: bisacodyL 10 MG SUPP PR PRN (08:33)
[2024-05-21] MEDS ORDERED: oxyCODONE/ACETAMINOPHEN 5mg/325mg TAB PO PRN (08:33)
[2024-05-21] MEDS ORDERED: HYDROCORTISONE ACETATE 25 MG SUPP PR PRN (08:33)
[2024-05-21] MEDS ORDERED: ceFAZolin 2000MG 2,000 MG/15 ML SYR IV SCH (08:33)
--- NOTE | 2024-05-21 08:34 | Delivery Summary ---
Vaginal Delivery Summary Date of Service May 21, 2024 Vaginal Delivery Summary and 3rd Degree LAC (partial) The patient dilated to complete and pushed to deliver a viable male infant Apgars 8 and 8 via over partial 3rd degree perineal laceration. Mouth and nose bulb suctioned at perineum. Shoulders and body delivered with ease. Body cord noted. was vigorous and crying at . Cord clamped at 4min of life due to parent's wishes and to maternal abdomen where the cord was then doubly clamped and cut. Placenta delivered spontaneously and intact, three-vessel cord. Hemostasis not achieved with dilute pitocin and uterine massage and drainage of the bladder for approximately 200 cc under sterile conditions. Cytotec 1000mcg placed rectally. Bleeding persisted and after checking bp, IM methergine given. Uterus had been swept x 2 and no retained products but clot noted and uterine atony. Given this was not improving, TATIANA placed in routine fashion and connected to suction. Laceration repaired in layers with 2-0 and 3-0 vicryl, but pt required 1% local lidocaine prior to repair. Cervix and sulci intact. QBL 1069 cc. Mother and baby stable in recovery. Blood only in suction tubing by time I left the room. Plan 3 doses of ancef due to uterine exploration. All reviewed with pt and she denies questions. [facility] [place] Vaginal Delivery Charge Delivery Type Details: and 3rd Degree LAC (partial)
[2024-05-21] MEDS: miSOPROStoL 200 MCG TAB PR ONE (09:00)
[2024-05-21] MEDS: ceFAZolin 2000MG 2,000 MG/15 ML SYR IV SCH (09:36)
--- NOTE | 2024-05-21 10:34 | Anesthesia Procedure Note ---
Date of Service May 21, 2024 Anesthesia Post Epidural Note Vital Signs Vital Signs: Temp Pulse Resp BP Pulse Ox 36.9 C 83 20 118/56 L 98 05/21/24 07:01 05/21/24 10:23 05/21/24 09:45 05/21/24 10:23 05/21/24 08:18 Pain Intensity Bilateral Abdomen: Pain Intensity: 7 Notes Mental Status: alert / awake / arousable and participated in evaluation Nausea / Vomiting: adequately controlled Pain: adequately controlled Airway Patency, RR, SpO2: stable & adequate BP & HR: stable & adequate Hydration State: stable & adequate Neuraxial Anesthesia: was administered and sensory block is resolving Anesthetic Complications: no major complications apparent and Pt Satisfied with anesthetic care Epidural: Removed without complications and With tip intact
[2024-05-21] MEDS: METHYLERGONOVINE MALEATE 0.2 MG/ML AMP ONE (11:07)
[2024-05-21] MEDS: miSOPROStoL 200 MCG TAB ONE (11:07)
[2024-05-21] MEDS: BENZOCAINE 20% SPRY 85 APPLN/85 GM CAN EXT PRN (11:07)
[2024-05-21] MEDS: IBUPROFEN 600 MG TAB PO PRN (15:17)
[2024-05-21] MEDS: ACETAMINOPHEN 325 MG TAB PO PRN (20:56)
[2024-05-21] MEDS: DOCUSATE SODIUM 100 MG CAP PO SCH (20:56)
[2024-05-21 23:04] VITALS: O2SAT 97
[2024-05-22] MEDS: DIPHTHER/TETAN/PERTUS Vaccine (Tdap, Adol/Adult) 0.5mL IM ONE (06:33)
[2024-05-22 07:09] LABS: Hematocrit (blood only) 23.8 % (37.0-47.0); Hemoglobin 8.1 g/dl (12.0-16.0); Mean Corpuscular Hemoglobin 29.1 pg (25.0-34.0); Mean Corpuscular Volume 85.6 fL (80.0-100.0); Mean Platelet Volume 9.8 fL (9.4-12.4); Platelet Count 309 K/uL (130-400); RDW Coefficient of Variation 13.5 % (11.5-14.5); RDW Standard Deviation 42.2 fL (36.4-46.3); Red Blood Count 2.78 M/uL (4.20-5.40); White Blood Count 20.35 K/ul (4.8-10.8)
[2024-05-22] MEDS: PRENATAL VITAMIN 1 TAB PO SCH (07:57)
[2024-05-22 09:45] VITALS: BP 111/75; RESP 18; TEMP 97.9
[2024-05-22 15:09] VITALS: PULSE 92
[2024-05-22] MEDS ORDERED: bisacodyL 5 MG TABEC PO SCH (20:00)
== END 2024-05-22 14:30 | disposition home or self-care (01) | DRG 768 ==
LOC: 4S1 07:56 → 4E2 05-21 15:00

== ENCOUNTER 2024-05-26 21:43 | Inpatient (IN) ==
[2024-05-26] MEDS: LABETALOL HCL IV 5 MG/ML 20ML IV STA (22:35)
--- NOTE | 2024-05-26 22:36 | Emergency Department Note ---
History of Present Illness General Chief complaint: Headache Stated complaint: HEADACHE, R SIDED PAIN, HIGH BP Time Seen by Provider: 05/26/24 21:46 History of Present Illness Maximum Pain Intensity: 4 This 33-year-old female who is 5 days presents ER complaining of headache, upper quadrant abdominal pain and elevated blood pressure. Patient has no complications during the delivery and had a perineal tear and difficulty with uterine bleeding. She just finished her antibiotics today of Augmentin. Patient saw OB today for routine follow-up. They told her to start taking iron. Patient denies chest pain, visual changes, worsening abdominal pain, worsening leg pain or swelling. This is her first . Home Medications Medication Instructions Recorded Confirmed Type ferrous sulfate 325 mg (65 mg 65 mg PO DAILY 05/27/24 05/27/24 History iron) tablet (Iron (ferrous sulfate)) Allergies Allergy/AdvReac Type Severity Reaction Status Date / Time latex Allergy Mild Hives Verified 05/20/24 08:40 Sulfa (Sulfonamide Allergy Unknown Unknown Verified 05/20/24 08:40 Antibiotics) adhesive tape AdvReac Mild Rash Verified 05/19/24 08:35 Past Med/Surg History Problem List (Updated 05/27/24 @ 01:37 by Betty Siddiqi PA-C) Pre-eclampsia affecting , antepartum (Acute) History of hemorrhage Encounter for induction of labor Obesity affecting , antepartum Insulin controlled gestational diabetes mellitus (GDM) during Encounter for anatomic survey Supervision of normal intrauterine in primigravida Medical History (Updated 05/27/24 @ 01:37 by Betty Siddiqi PA-C) Encounter for pre-operative examination Asthma reports had asthma as a child. does not have inhaler or take any medication for it. ADHD previously on concerta. stopped with positive test Surgical History Status post colposcopy S/P colonoscopy H/O oral surgery Family History Father Heart disease Grandmother (Maternal) Glioblastoma Social History (Updated 05/20/24 @ 08:43 by Zakiya De La Rosa RN) Smoking Status: Never smoker Do You Dip or Chew Tobacco: No; Hx Alcohol Use: No Hx Substance Use: No Preferred Language: Finnish Communication Ability: Effective Visual Impairment: Limited Hearing Ability: Normal [employer] Required: No Beliefs That Will Affect Care: None marital status: marital status details: Winston (31) [phone] Current Living Situation: Spouse Current Living Situation Comment: lives with spouse, 2 dogs, 1 cat, spouse changes litter. current occupational status: unemployed Feels Safe at Home: Yes Diet: low carbohydrate and regular Assistive Devices: Glasses Review of Systems A total of 10 systems reviewed and were otherwise negative Physical Exam Vital Signs Vital Signs - 24 hr 05/26/24 21:46 05/26/24 22:23 05/26/24 22:25 Temperature 36.6 C Temperature Source Temporal Artery Scan Pulse Rate 79 Pulse Rate [Apical] 86 Pulse Rate from SpO2 Sensor Respiratory Rate 18 20 Respiratory Effort / Characteristics Non-Labored Respiratory Depth Normal Blood Pressure 177/81 H Blood Pressure [Right Arm] 155/88 H Blood Pressure Mean 113 Blood Pressure Mean [Right Arm] 110 Blood Pressure Position [Right Arm] Semi-fowlers Pulse Oximetry 98 Oxygen Delivery Method Room Air Room Air Sepsis Recent Fever Within 48 Hours No Sepsis New/Unexplained Change in Mental Status No Sepsis Action Taken by Nursing No Action Required 05/26/24 22:34 05/26/24 22:35 05/26/24 22:44 Temperature Temperature Source Pulse Rate 81 81 Pulse Rate [Apical] 77 Pulse Rate from SpO2 Sensor Respiratory Rate Respiratory Effort / Characteristics Respiratory Depth Blood Pressure 160/92 H Blood Pressure [Right Arm] 160/92 H Blood Pressure Mean Blood Pressure Mean [Right Arm] 114 Blood Pressure Position [Right Arm] Pulse Oximetry Oxygen Delivery Method Sepsis Recent Fever Within 48 Hours Sepsis New/Unexplained Change in Mental Status Sepsis Action Taken by Nursing 05/26/24 22:45 05/26/24 22:50 05/26/24 23:15 Temperature Temperature Source Pulse Rate 80 Pulse Rate [Apical] 80 Pulse Rate from SpO2 Sensor Respiratory Rate Respiratory Effort / Characteristics Respiratory Depth Blood Pressure 169/81 H 141/87 H Blood Pressure [Right Arm] 169/81 H Blood Pressure Mean 116 Blood Pressure Mean [Right Arm] 110 Blood Pressure Position [Right Arm] Pulse Oximetry Oxygen Delivery Method Sepsis Recent Fever Within 48 Hours Sepsis New/Unexplained Change in Mental Status Sepsis Action Taken by Nursing 05/26/24 23:21 05/26/24 23:45 05/26/24 23:51 Temperature Temperature Source Pulse Rate 77 80 Pulse Rate [Apical] Pulse Rate from SpO2 Sensor 76 81 Respiratory Rate 19 20 Respiratory Effort / Characteristics Respiratory Depth Blood Pressure 165/99 H Blood Pressure [Right Arm] Blood Pressure Mean 124 Blood Pressure Mean [Right Arm] Blood Pressure Position [Right Arm] Pulse Oximetry 98 98 Oxygen Delivery Method Room Air Room Air Sepsis Recent Fever Within 48 Hours Sepsis New/Unexplained Change in Mental Status Sepsis Action Taken by Nursing 05/27/24 00:00 05/27/24 00:00 05/27/24 00:00 Temperature Temperature Source Pulse Rate 84 Pulse Rate [Apical] Pulse Rate from SpO2 Sensor 83 Respiratory Rate 18 Respiratory Effort / Characteristics Respiratory Depth Blood Pressure 166/81 H 166/81 H Blood Pressure [Right Arm] Blood Pressure Mean 128 128 Blood Pressure Mean [Right Arm] Blood Pressure Position [Right Arm] Pulse Oximetry 99 Oxygen Delivery Method Room Air Sepsis Recent Fever Within 48 Hours Sepsis New/Unexplained Change in Mental Status Sepsis Action Taken by Nursing 05/27/24 00:15 05/27/24 00:15 05/27/24 00:30 Temperature Temperature Source Pulse Rate 74 Pulse Rate [Apical] Pulse Rate from SpO2 Sensor 72 Respiratory Rate 17 Respiratory Effort / Characteristics Respiratory Depth Blood Pressure 130/75 130/71 Blood Pressure [Right Arm] Blood Pressure Mean 93 84 Blood Pressure Mean [Right Arm] Blood Pressure Position [Right Arm] Pulse Oximetry 96 Oxygen Delivery Method Room Air Sepsis Recent Fever Within 48 Hours Sepsis New/Unexplained Change in Mental Status Sepsis Action Taken by Nursing 05/27/24 00:45 05/27/24 01:00 05/27/24 01:00 Temperature Temperature Source Pulse Rate 89 Pulse Rate [Apical] Pulse Rate from SpO2 Sensor 89 Respiratory Rate 19 Respiratory Effort / Characteristics Respiratory Depth Blood Pressure 152/79 H 175/95 H Blood Pressure [Right Arm] Blood Pressure Mean 98 139 Blood Pressure Mean [Right Arm] Blood Pressure Position [Right Arm] Pulse Oximetry 99 Oxygen Delivery Method Room Air Sepsis Recent Fever Within 48 Hours Sepsis New/Unexplained Change in Mental Status Sepsis Action Taken by Nursing 05/27/24 01:00 Temperature Temperature Source Pulse Rate Pulse Rate [Apical] Pulse Rate from SpO2 Sensor Respiratory Rate Respiratory Effort / Characteristics Respiratory Depth Blood Pressure 175/95 H Blood Pressure [Right Arm] Blood Pressure Mean 139 Blood Pressure Mean [Right Arm] Blood Pressure Position [Right Arm] Pulse Oximetry Oxygen Delivery Method Sepsis Recent Fever Within 48 Hours Sepsis New/Unexplained Change in Mental Status Sepsis Action Taken by Nursing VITALS: Vitals are noted on the nurse's note and reviewed by myself. Vital signs hypertensive. GENERAL: Pleasant female ambulating without difficulties, in no acute distress, nondiaphoretic, well-developed well-nourished. SKIN: The skin was without rashes, erythema, edema, or bruising. There is no tenting of the skin. Capillary reflex less than 2 seconds. HEAD: Normocephalic atraumatic. EARS: External auditory canals clear EYES: Pupils equal round and reactive to light and accommodation. Conjunctivae without injection, sclerae without icterus. Extraocular movements intact. NOSE: Patent, no discharge. MOUTH: Mucous membranes moist. Pharynx without erythema or exudate. Uvula midline. Airway patent. Tongue does not deviate. NECK: Supple without nuchal rigidity. No lymphadenopathy. No thyromegaly. Cervical spine is nontender. No JVD. HEART: Regular rate and rhythm LUNGS: Clear to auscultation bilaterally without wheezes, rales or rhonchi. No retractions or accessory muscle use. ABDOMEN: Positive bowel sounds x 4. Normal tympanic percussion. Soft, tender upper abdomen, without masses or organomegaly. Mock sign negative. No guarding or rebound tenderness. No CVA tenderness MUSCULOSKELETAL: No muscle atrophy, erythema, or edema noted. NEURO: Patient was alert and oriented to person place and time. Normal sensation to light and sharp touch. No focal neurological deficits. Course Administered Medications Magnesium Sulfate (Magnesium Sulfate / Wtr) 40 gm in 1,000 mls @ 50 mls/hr IV .Q20H [facility] Stop: 06/25/24 23:44 Last Admin: 05/27/24 00:01 Dose: 50 mls/hr Documented By: Co-signed By: DAR Discontinued Medications Labetalol HCl (Labetalol Hcl Iv 5 Mg/Ml 20ml) 15 mg IV NOW STA Stop: 05/26/24 22:22 Last Admin: 05/26/24 22:35 Dose: 15 mg Documented By: DAR Magnesium Sulfate (Mag Sulfate 6gm Bolus From Bag) 6 gm IV ONE ONE Stop: 05/26/24 23:41 Last Admin: 05/27/24 00:01 Dose: 6 gm Documented By: Co-signed By: LCD Ondansetron HCl (Ondansetron Inj 2 Mg/Ml 2 Ml Vial) 4 mg IV NOW STA Stop: 05/26/24 23:03 Last Admin: 05/26/24 23:07 Dose: 4 mg Documented By: Critical Care Time Critical Care Time: Yes Total Critical Care Time: 35 I have personally spent 35 minutes of critical care time in the direct management of this patient. This includes bedside care, interpretation of diagnostic studies, and testing, discussion with consultants, patient, and family members, and other required patient management activities. This 35 minutes is in excess of all separately billable procedures. Medical Decision Making Medical Records Attestation: I reviewed the patient's medical records. Home Medications Current Medication List: was personally reviewed by me Laboratory Data Attestation: I reviewed the patient's lab results. 05/26/24 22:19 05/26/24 22:19 Lab Results 05/26/24 05/26/24 05/26/24 Range/Units 22:19 22:30 22:40 WBC 10.84 H (4.8-10.8) K/ul RBC 2.89 L (4.20-5.40) M/uL Hgb 8.3 L (12.0-16.0) g/dl POC Hgb 7.1 L (12.0-16.0) g/dl Hct 24.8 L (37.0-47.0) % POC Hct 21 L (37-47) % MCV 85.8 (80.0-100.0) fL MCH 28.7 (25.0-34.0) pg MCHC 33.5 (32.0-36.0) g/dL RDW Std Deviation 40.2 (36.4-46.3) fL RDW Coeff of [place] 13.0 (11.5-14.5) % Plt Count 515 H (130-400) K/uL MPV 9.1 L (9.4-12.4) fL Immature Gran % (Auto) 1.4 % Neut % (Auto) 67.3 % Lymph % (Auto) 21.4 % [place] % (Auto) 7.1 % Eos % (Auto) 2.2 % Baso % (Auto) 0.6 % Neut # (Auto) 7.30 H (1.40-6.50) K/uL Lymph # (Auto) 2.32 (1.20-3.40) K/uL [place] # (Auto) 0.77 H (0.11-0.59) K/uL Eos # (Auto) 0.24 (0.00-0.50) K/uL Baso # (Auto) 0.06 (0.00-0.20) K/uL Immature Gran # (Auto) 0.15 (0.01-0.20) K/uL Absolute Nucleated RBC 0.02 (0.00-0.12) K/uL Nucleated RBC % (auto) 0.2 % PT 9.8 (9.0-12.0) Seconds INR 0.9 (0.9-1.1) APTT 27 (21-31) Seconds PTT Ratio 1.0 POC Sodium 139 (135-144) mmol/L Sodium 139 (136-145) mmol/L POC Potassium 3.7 (3.3-5.0) mmol/L Potassium 3.7 (3.5-5.1) mmol/L POC Chloride 104 (101-112) mmol/L Chloride 105 (98-107) mmol/L Carbon Dioxide 28 (21-32) mmol/L POC Total CO2 23 L (24-31) mmol/L Anion Gap 6 (3-11) POC Anion Gap 16.0 (16-25) mmol/L POC BUN 13 (7-18) mg/dl BUN 15 (6-23) mg/dl Creatinine 0.84 (0.6-1.2) mg/dl POC Creatinine 1.0 (0.6-1.3) mg/dl Est Cr Clr Drug Dosing 97.4 ml/min eGFR 95.22 BUN/Creatinine Ratio 17.9 (10-20) Glucose 96 (70-99(Fasting)) mg/dl POC Glucose (other) 92 (70-99) mg/dl Calcium 9.2 (8.6-10.3) mg/dl POC Ioniz Calcium [place] 1.19 (1.12-1.32) mmol/l Magnesium 1.8 (1.7-2.4) mg/dl Total Bilirubin 0.3 (0.2-1.0) mg/dl AST 20 (13-39) U/L ALT 25 (7-52) U/L Alkaline Phosphatase 106 H (34-104) U/L Total Protein 7.0 (6.0-8.3) gm/dl Albumin 3.6 (3.4-5.0) gm/dl Globulin 3.4 (2.5-4.0) gm/dl Albumin/Globulin Ratio 1.1 (0.9-2) TSH 3.742 (0.300-4.500) uIu/ml Urine Color Yellow Urine Appearance Clear (Clear) Urine pH 7.0 (4.5-7.5) Ur Specific [place] 1.009 (1.000-1.030) Urine Protein Trace H (Negative) Urine Glucose (UA) Negative (Negative) Urine Ketones Negative (Negative) Urine Blood 3+ H (Negative) Urine Nitrite Negative (Negative) Urine Bilirubin Negative (Negative) Urine Urobilinogen Negative (Negative) Ur Leukocyte Esterase 3+ H (Negative) Urine WBC (Auto) >50 H (0-5) /hpf Urine RBC (Auto) >20 H (0-2) /hpf U Hyaline Cast (Auto) 0-2 (0-2) /lpf U Epithel Cells (Auto) 3-5 H (0-2) /hpf Urine Bacteria (Auto) None Seen (None Seen) Ur Random Creatinine 36.1 mg/dl U Random Total Protein 22.1 H (0-11.9) mg/dl Protein/Creatinin Ratio 0.6 H (0-0.2) Blood Type A Positive Antibody Screen NEGATIVE Imaging Data Attestation: I personally reviewed and interpreted this imaging study as follows: Radiologist's Impression: Chest X-Ray 05/26/24 21:58 Exam(s): XR CXR 1 VIEW EXAM: XR Chest, 1 View CLINICAL HISTORY: Reason for exam: weakness. TECHNIQUE: Frontal view of the chest. COMPARISON: No relevant prior studies available. FINDINGS: Lungs: Unremarkable. No consolidation. Pleural space: Unremarkable. No pneumothorax. Heart: Unremarkable. No cardiomegaly. Mediastinum: Unremarkable. Normal mediastinal contour. Bones/joints: Unremarkable. No acute fracture. IMPRESSION: No evidence of acute cardiopulmonary pathology. Electronically signed by: Casey Heredia MD 05/27/24 00:35 AM [facility] Narrative Prior records/ancillary studies reviewed and summarized above. Nursing notes reviewed. Additional history obtained from family. The patient's history was concerning for 5 days with headache, abdominal pain and hypertension. Differential diagnosis: Etiologies such as preeclampsia, eclampsia, complication, metabolic, infection, hypo/hyperglycemia, electrolyte abnormalities, cardiac sources, intracerebral event, toxicologic, neurologic, as well as others were entertained. Physical examination: As above. ER treatment provided: IV Lock An order was placed for continuous cardiac monitoring. The monitor shows a rate of 60-100 with a sinus rhythm per my interpretation. Labetalol, magnesium for preeclampsia On reassessment the patient felt better. Diagnostics interpretation by me: ECG: Ordered for hypertensive EKG: Normal sinus, normal intervals, no acute ST-T wave changes. Rate 87. Impression normal sinus rhythm independently interpreted by myself The labs Independently Interpreted by myself revealed improving H&H. Normal platelet count. Normal LFTs since minimally elevated alk phos. Urine was reviewed Type and screen was sent and patient was consented to blood if warranted Imaging studies: Imaging was reviewed and read by radiology Consultation: A consultation was placed with [facility], Dr. Linder. The case was discussed and diagnostics were reviewed. She recommends starting magnesium and admit to her services. Exam and history seem consistent with concerns for preeclampsia. Patient was given labetalol upon initial evaluation for elevated blood pressure. Blood pressure did improve. Magnesium was started after discussion with [facility]. Patient was admitted to the OB services. Patient and family are agreeable. CBC is improving. Normal platelet count. Blood pressure did improve. By the evaluation outlined above emergent etiologies such as infection, electrolyte abnormalities, intracerebral event, toxologic, neurologic, abnormalities blood glucose, metabolic, as well as others were deemed relatively unlikely. The pt informed about the findings as listed above. All questions were answered and pleased with the treatment. The chart was completed utilizing [employer] Speech voice recognition software. Grammatical errors, random word insertions, pronoun errors, and incomplete sentences are an occassional consequence of this system due to software limitations, ambient noise, and hardware issues. Any formal questions or concerns about the content, text, or information contained within the body of this dictation should be directly addressed to the physician facilities maintenance assistant for clarification. Impression & Plan Pre-eclampsia affecting , antepartum Discharge Plan Visit Data Chief Complaint: Headache Stated Complaint: HEADACHE, R SIDED PAIN, HIGH BP ED Provider: Rafa Kaur ED Midlevel Provider: Betty Siddiqi Discharge Problem: Pre-eclampsia affecting , antepartum Patient Disposition: Admitted As Inpatient Condition: Fair Forms Stand Alone Forms: My [facility] Prescriptions Prescriptions: No Action ferrous sulfate [Iron (ferrous sulfate)] 325 mg (65 mg iron) Tablet 65 mg PO DAILY Referrals Referrals: Darya Hopkins CRNP [Primary Care Provider] -
[2024-05-26 22:42] LABS: iSTAT Hemoglobin 7.1 g/dl (12.0-16.0); iSTAT Ionized Calcium 1.19 mmol/l (1.12-1.32); iSTAT Potassium 3.7 mmol/L (3.3-5.0)
[2024-05-26 22:47] LABS: Basophils # (auto) 0.06 K/uL (0.00-0.20); Basophils % (auto) 0.6 %; Eosinophils # (auto) 0.24 K/uL (0.00-0.50); Eosinophils % (auto) 2.2 %; Hematocrit (blood only) 24.8 % (37.0-47.0); Hemoglobin 8.3 g/dl (12.0-16.0); Immature Granulocytes # (auto) 0.15 K/uL (0.01-0.20); Immature Granulocytes % (auto) 1.4 %; Lymphocytes # (auto) 2.32 K/uL (1.20-3.40); Lymphocytes % (auto) 21.4 %; Mean Corpuscular Hemoglobin 28.7 pg (25.0-34.0); Mean Corpuscular Hgb Conc 33.5 g/dL (32.0-36.0); Mean Corpuscular Volume 85.8 fL (80.0-100.0); Mean Platelet Volume 9.1 fL (9.4-12.4); Monocytes # (auto) 0.77 K/uL (0.11-0.59); Monocytes % (auto) 7.1 %; Neutrophils % (auto) 67.3 %; Nucleated RBC # (auto) 0.02 K/uL (0.00-0.12); Nucleated RBC % (auto) 0.2 %; Platelet Count 515 K/uL (130-400); RDW Standard Deviation 40.2 fL (36.4-46.3); Red Blood Count 2.89 M/uL (4.20-5.40); White Blood Count 10.84 K/ul (4.8-10.8)
[2024-05-26 22:54] LABS: Albumin Globulin Ratio 1.1 (0.9-2); Albumin Level 3.6 gm/dl (3.4-5.0); BUN Creatinine Ratio 17.9 (10-20); Bilirubin,Total 0.3 mg/dl (0.2-1.0); Calcium 9.2 mg/dl (8.6-10.3); Creatinine Clr Calc Pharmacy 97.4 ml/min; Globulin 3.4 gm/dl (2.5-4.0); Magnesium 1.8 mg/dl (1.7-2.4); Potassium 3.7 mmol/L (3.5-5.1)
[2024-05-26 22:56] LABS: Creatinine Urine Random 36.1 mg/dl; Protein Creatinine Ratio Urine 0.6 (0-0.2); Total Protein Urine Random 22.1 mg/dl (0-11.9)
[2024-05-26] MEDS: ONDANSETRON INJ 2 MG/ML 2 ML VIAL IV STA (23:07)
[2024-05-26 23:09] LABS: Thyroid Stimulating Hormone 3.742 uIu/ml (0.300-4.500)
[2024-05-26 23:24] LABS: INR 0.9 (0.9-1.1); Partial Thromboplastin Time 27 Seconds (21-31); Prothrombin Time 9.8 Seconds (9.0-12.0)
[2024-05-26 23:27] LABS: Appearance Urine Clear (Clear); Bilirubin Urine Negative (Negative); Blood Urine 3+ (Negative); Color Urine Yellow; Glucose Urine UA Negative (Negative); Ketones Urine Negative (Negative); Leukocyte Esterase Urine 3+ (Negative); Nitrite Urine Negative (Negative); Protein Urine Trace (Negative); Specific Gravity Urine 1.009 (1.000-1.030); Urobilinogen Urine Negative (Negative)
[2024-05-26 23:29] LABS: Bacteria Urine Automated None Seen (None Seen); Cast Urine Automated 0-2 /lpf (0-2); RBC Urine Automated >20 /hpf (0-2); WBC Urine Automated >50 /hpf (0-5)
[2024-05-27] MEDS: MAGNESIUM SULFATE / WTR 40 GM/1,000 ML BAG IV SCH (00:01)
[2024-05-27] MEDS: MAG SULFATE 6GM BOLUS FROM BAG IV ONE (00:01)
--- NOTE | 2024-05-27 00:36 | XRay Report ---
Exam(s): XR CXR 1 VIEW EXAM: XR Chest, 1 View CLINICAL HISTORY: Reason for exam: weakness. TECHNIQUE: Frontal view of the chest. COMPARISON: No relevant prior studies available. FINDINGS: Lungs: Unremarkable. No consolidation. Pleural space: Unremarkable. No pneumothorax. Heart: Unremarkable. No cardiomegaly. Mediastinum: Unremarkable. Normal mediastinal contour. Bones/joints: Unremarkable. No acute fracture. IMPRESSION: No evidence of acute cardiopulmonary pathology. Electronically signed by: Casey Heredia MD 05/27/24 00:35 AM
[2024-05-27] MEDS ORDERED: MAGNESIUM SULFATE / WTR 40 GM/1,000 ML BAG IV SCH (01:45)
--- NOTE | 2024-05-27 01:52 | History & Physical Report ---
Date of Service May 27, 2024 Assessment & Plan (1) Pre-eclampsia affecting , antepartum: Plan: Readmit for preeclampsia with severe features. Continue acute BP mgmt. History of Present Illness Primary Care Provider: SILAS Friend 33yo who is PPD#5 from with ~1L PPH managed by [facility] device and medical treatment. Has had 36 hours now of symptoms including fatigue, shakes, dizziness, nausea, just "not feeling right." Was seen in office 05/26 with 2x elevated blood pressure but at that time no other symptoms per note, so was managed outpatient with labs. Was given precautions and when symptoms from the precaution list presented she contacted o/c and was brought to ER. Presenting with RUQ pain, headache that is not typical for her and did not respond to tylenol at home. Swelling has improved since delivery. No vision changes. Hgb improved to 8.3 Plt 515 WBC 10.9 Coags WNL Cr 1.0 (POC) then serum 0.84, AST/ALT 20/25, TSH 3.7, Pr/Cr 0.6 (but clean catch nigh impossible ), CXR reassuring. Allergies Allergy/AdvReac Type Severity Reaction Status Date / Time latex Allergy Mild Hives Verified 05/20/24 08:40 Sulfa (Sulfonamide Allergy Unknown Unknown Verified 05/20/24 08:40 Antibiotics) adhesive tape AdvReac Mild Rash Verified 05/19/24 08:35 Home Medications Medication Instructions Recorded Confirmed Type ferrous sulfate 325 mg (65 mg 65 mg PO DAILY 05/27/24 05/27/24 History iron) tablet (Iron (ferrous sulfate)) Past Med/Surg History Problem List Pre-eclampsia affecting , antepartum (Acute) History of hemorrhage Encounter for induction of labor Obesity affecting , antepartum Insulin controlled gestational diabetes mellitus (GDM) during Encounter for anatomic survey Supervision of normal intrauterine in primigravida Medical History Encounter for pre-operative examination Asthma reports had asthma as a child. does not have inhaler or take any medication for it. ADHD previously on concerta. stopped with positive test Surgical History Status post colposcopy S/P colonoscopy H/O oral surgery Family History Father Heart disease Grandmother (Maternal) Glioblastoma Social History Smoking Status: Never smoker Do You Dip or Chew Tobacco: No; Hx Alcohol Use: No Hx Substance Use: No Preferred Language: Jordanian Communication Ability: Effective Visual Impairment: Limited Hearing Ability: Normal Observation Nurse Required: No Beliefs That Will Affect Care: None marital status: marital status details: Winston (31) [phone] Current Living Situation: Spouse Current Living Situation Comment: lives with spouse, 2 dogs, 1 cat, spouse changes litter. current occupational status: unemployed Feels Safe at Home: Yes Diet: low carbohydrate and regular Assistive Devices: Glasses Physical Exam Constitutional: WD/WN, vitals as above Eyes: PERRL, conjunctivae normal, anicteric sclerae ENMT: external ear and nose normal, oropharynx normal Neck: supple Respiratory: normal respiratory effort and able to speak in complete sentences; no respiratory distress Cardiovascular: Rate/Rhythm: regular rate and regular rhythm Gastrointestinal (Abdomen): Gravid / AGA, nontender Musculoskeletal: no cyanosis or clubbing, extremities motor strength 5/5 Skin: no rashes, warm and dry Neurologic: patellar DTR's 2+ bilat, sensation intact Psychiatric: A+Ox3, euthymic affect Genitourinary: Speculum/Bimanual Exam: uterus nontender Lymphatic: no cervical or axillary lymphadenopathy Results & Data Results & Data Vital Signs (Past 12 Hours) Vital Signs Temp Pulse Pulse Resp BP BP Pulse Ox 05/27/24 01:00 175/95 H 05/27/24 01:00 175/95 H 05/27/24 01:00 89 19 99 05/27/24 00:45 152/79 H 05/27/24 00:30 130/71 05/27/24 00:15 130/75 05/27/24 00:15 74 17 96 05/27/24 00:00 166/81 H 05/27/24 00:00 166/81 H 05/27/24 00:00 84 18 99 05/26/24 23:51 80 20 98 05/26/24 23:45 165/99 H 05/26/24 23:21 77 19 98 05/26/24 23:15 141/87 H 05/26/24 22:50 80 169/81 H 05/26/24 22:45 80 169/81 H 05/26/24 22:44 81 05/26/24 22:35 81 160/92 H 05/26/24 22:34 77 160/92 H 05/26/24 22:25 86 20 155/88 H 05/26/24 22:23 05/26/24 21:46 97.9 F 79 18 177/81 H 98 O2 Del Method 05/27/24 01:00 05/27/24 01:00 05/27/24 01:00 Room Air 05/27/24 00:45 05/27/24 00:30 05/27/24 00:15 05/27/24 00:15 Room Air 05/27/24 00:00 05/27/24 00:00 05/27/24 00:00 Room Air 05/26/24 23:51 Room Air 05/26/24 23:45 05/26/24 23:21 Room Air 05/26/24 23:15 05/26/24 22:50 05/26/24 22:45 05/26/24 22:44 05/26/24 22:35 05/26/24 22:34 05/26/24 22:25 05/26/24 22:23 Room Air 05/26/24 21:46 Room Air Code Status & VTE Plan VTE Prophylaxis Plan VTE Prophylaxis will be ordered: Yes PG Care Time/CCT Total # of Minutes Spent Total Time Spent with Patient: Total time spent is greater than 50% in coordination of care (as documented) at patient's floor/unit and/or counseling patient: Coding Level of Care Code None Diagnoses Pre-eclampsia affecting , antepartum O14.90
[2024-05-27] MEDS: LABETALOL HCL IV 5 MG/ML 20ML IV STA ×2 (02:15→08:35)
[2024-05-27] MEDS: LIDOCAINE 2% JELLY 5 ML TUBE EXT ONE (03:41)
[2024-05-27] MEDS ORDERED: ONDANSETRON INJ 2 MG/ML 2 ML VIAL IV PRN (08:57)
[2024-05-27] MEDS ORDERED: HYDROCORTISONE ACETATE 25 MG SUPP PR PRN (08:57)
[2024-05-27] MEDS ORDERED: Nursing to Pharmacy Communication SCH (10:00)
[2024-05-27] MEDS: ACETAMINOPHEN 325 MG TAB PO PRN (10:33)
[2024-05-27] MEDS: FERROUS SULFATE 325 MG TAB PO ONE (10:34)
[2024-05-27] MEDS: PRENATAL VITAMIN 1 TAB PO ONE (10:34)
[2024-05-27] MEDS: DOCUSATE SODIUM 100 MG CAP PO ONE (10:34)
[2024-05-27] MEDS: IBUPROFEN 600 MG TAB PO PRN (13:21)
--- NOTE | 2024-05-27 14:16 | Electrocardiogram Report ---
Test Reason : Blood Pressure : */* mmHG Vent. Rate : 87 BPM Atrial Rate : 87 BPM P-R Int : 118 ms QRS Dur : 78 ms QT Int : 346 ms P-R-T Axes : 53 66 51 degrees QTcB Int : 416 ms Normal sinus rhythm Normal ECG No previous ECGs available Confirmed by Juaquin Rodriugez ([id number]) on 05/27/2024 2:16:15 PM Referred By: REFERRED SELF Confirmed By: Juaquin Rodriguez
--- NOTE | 2024-05-27 14:25 | Ultrasound Report ---
US venous doppler LE RT HISTORY: pain in calf COMPARISON: None TECHNIQUE: Multiple real-time sonographic images of the right lower extremity deep venous structures were obtained assessing grayscale appearance, color and spectral flow. FINDINGS: No DVT seen at the right lower extremity. IMPRESSION: No DVT seen. ACT 112: Negative or not required by law. The above report was generated using voice recognition software. It may contain grammatical, syntax o r spelling errors. Electronically signed by: Irwin Calderon M.D. 05/27/2024 2:24 PM
[2024-05-27] MEDS: BENZOCAINE 20% SPRY 85 APPLN/85 GM CAN EXT ONE (17:07)
[2024-05-28] MEDS: DOCUSATE SODIUM 100 MG CAP PO SCH (00:34)
--- NOTE | 2024-05-28 07:04 | Obstetrical Progress Note ---
Date of Service May 28, 2024 day 7 with readmission for preeclampsia previous provider had her on magnesium this was stopped at midnight last night the patient is actually feeling well she had had some calf pain which was assessed with a normal Doppler and she had some chest pain as well which is resolving no normal EKG her blood pressure one-time reading when the magnesium was coming off was significantly elevated otherwise recent this morning it is perfectly normal she had some mildly elevated pressures I am on the fence about starting nifedipine today we will see what her pressures are off the magnesium if they increase would recommend starting an antihypertensive otherwise we will keep her here today observe and if her pressure stabilized without she would be able to go home tomorrow reviewed in depth she has no headache all of her questions answered Assessment & Plan (1) Pre-eclampsia affecting , antepartum: See HPI Physical Exam Constitutional WD/WN, vitals as above well developed and well nourished Respiratory normal respiratory effort, lungs clear to auscultation normal respiratory effort Cardiovascular RRR, no murmur, no edema Gastrointestinal (Abdomen) normal bowel sounds, soft, nontender, no hepatosplenomegaly Results & Data Vital Signs (Past 12 Hours) Vital Signs Temp Pulse Pulse Resp BP BP Pulse Ox 05/28/24 06:33 121/81 05/28/24 04:56 98.2 F 81 16 146/84 H 98 05/28/24 01:39 78 142/65 H 05/28/24 01:29 79 99 05/28/24 01:24 78 98 05/28/24 01:19 89 98 05/28/24 01:14 101 H 99 05/28/24 01:09 65 97 05/28/24 01:04 64 97 05/28/24 00:59 64 98 05/28/24 00:54 64 98 05/28/24 00:49 66 98 05/28/24 00:44 64 97 05/28/24 00:39 73 98 05/28/24 00:37 73 148/71 H 05/28/24 00:34 70 99 05/28/24 00:29 77 98 05/28/24 00:24 65 98 05/28/24 00:19 64 96 05/28/24 00:15 98.2 F 18 05/28/24 00:15 18 05/28/24 00:14 86 99 05/28/24 00:09 99 05/28/24 00:09 82 05/28/24 00:09 74 166/80 H 05/28/24 00:04 66 97 05/27/24 23:59 73 98 05/27/24 23:54 67 97 05/27/24 23:49 64 97 05/27/24 23:44 62 97 05/27/24 23:39 66 97 05/27/24 23:34 68 96 05/27/24 23:29 99 05/27/24 23:29 86 05/27/24 23:29 78 152/76 H 05/27/24 23:25 18 05/27/24 23:24 100 05/27/24 23:24 67 05/27/24 23:24 71 93 05/27/24 23:19 62 97 05/27/24 23:14 76 94 05/27/24 23:09 67 96 05/27/24 23:04 68 94 05/27/24 23:00 70 93 05/27/24 22:59 75 94 05/27/24 22:54 75 98 05/27/24 22:51 78 94 05/27/24 22:49 72 96 05/27/24 22:44 80 96 05/27/24 22:39 64 98 05/27/24 22:34 67 97 05/27/24 22:29 65 97 05/27/24 22:24 80 96 05/27/24 22:19 82 99 05/27/24 22:17 82 139/65 05/27/24 22:15 20 05/27/24 22:14 85 99 05/27/24 22:09 84 97 05/27/24 22:04 69 97 05/27/24 21:59 67 94 05/27/24 21:54 68 94 05/27/24 21:49 69 94 05/27/24 21:46 69 94 05/27/24 21:44 68 94 05/27/24 21:41 67 94 05/27/24 21:39 67 96 05/27/24 21:34 68 96 05/27/24 21:33 70 93 05/27/24 21:29 65 97 05/27/24 21:24 68 97 05/27/24 21:19 81 97 05/27/24 21:15 18 05/27/24 21:14 83 99 0328/25 21:13 83 139/73 05/27/24 21:09 77 97 05/27/24 21:04 69 98 05/27/24 20:59 89 99 05/27/24 20:54 78 97 05/27/24 20:49 67 97 05/27/24 20:44 84 99 05/27/24 20:39 81 98 05/27/24 20:34 77 96 05/27/24 20:29 89 98 05/27/24 20:24 98 H 100 05/27/24 20:19 76 96 05/27/24 20:16 81 146/69 H 05/27/24 20:15 22 05/27/24 20:14 73 96 05/27/24 20:09 80 97 05/27/24 20:04 84 96 05/27/24 19:59 81 97 05/27/24 19:54 88 97 05/27/24 19:49 81 97 05/27/24 19:44 84 98 05/27/24 19:39 68 96 05/27/24 19:34 77 98 05/27/24 19:29 82 97 05/27/24 19:24 83 97 05/27/24 19:19 80 98 05/27/24 19:14 84 98 05/27/24 19:09 86 97 05/27/24 19:05 98.2 F 18 05/27/24 19:05 18 05/27/24 19:04 88 98 05/27/24 19:03 87 135/79 O2 Del Method 05/28/24 06:33 05/28/24 04:56 Room Air 05/28/24 01:39 05/28/24 01:29 05/28/24 01:24 05/28/24 01:19 05/28/24 01:14 05/28/24 01:09 05/28/24 01:04 05/28/24 00:59 05/28/24 00:54 05/28/24 00:49 05/28/24 00:44 05/28/24 00:39 05/28/24 00:37 05/28/24 00:34 05/28/24 00:29 05/28/24 00:24 05/28/24 00:19 05/28/24 00:15 05/28/24 00:15 05/28/24 00:14 05/28/24 00:09 05/28/24 00:09 05/28/24 00:09 05/28/24 00:04 05/27/24 23:59 05/27/24 23:54 05/27/24 23:49 05/27/24 23:44 05/27/24 23:39 05/27/24 23:34 05/27/24 23:29 05/27/24 23:29 05/27/24 23:29 05/27/24 23:25 05/27/24 23:24 05/27/24 23:24 05/27/24 23:24 05/27/24 23:19 05/27/24 23:14 05/27/24 23:09 05/27/24 23:04 05/27/24 23:00 05/27/24 22:59 05/27/24 22:54 05/27/24 22:51 05/27/24 22:49 05/27/24 22:44 05/27/24 22:39 05/27/24 22:34 05/27/24 22:29 05/27/24 22:24 05/27/24 22:19 05/27/24 22:17 05/27/24 22:15 05/27/24 22:14 05/27/24 22:09 05/27/24 22:04 05/27/24 21:59 05/27/24 21:54 05/27/24 21:49 05/27/24 21:46 05/27/24 21:44 05/27/24 21:41 05/27/24 21:39 05/27/24 21:34 05/27/24 21:33 05/27/24 21:29 05/27/24 21:24 05/27/24 21:19 05/27/24 21:15 05/27/24 21:14 05/27/24 21:13 05/27/24 21:09 05/27/24 21:04 05/27/24 20:59 05/27/24 20:54 05/27/24 20:49 05/27/24 20:44 05/27/24 20:39 05/27/24 20:34 05/27/24 20:29 05/27/24 20:24 05/27/24 20:19 05/27/24 20:16 05/27/24 20:15 05/27/24 20:14 05/27/24 20:09 05/27/24 20:04 05/27/24 19:59 05/27/24 19:54 05/27/24 19:49 05/27/24 19:44 05/27/24 19:39 05/27/24 19:34 05/27/24 19:29 05/27/24 19:24 05/27/24 19:19 05/27/24 19:14 05/27/24 19:09 05/27/24 19:05 05/27/24 19:05 05/27/24 19:04 05/27/24 19:03
[2024-05-28] MEDS: PRENATAL VITAMIN 1 TAB PO SCH (08:29)
[2024-05-28] MEDS: FERROUS SULFATE 325 MG TAB PO SCH (08:29)
[2024-05-28 17:33] VITALS: RESP 18
[2024-05-29 05:21] VITALS: TEMP 98.1; O2SAT 98
--- NOTE | 2024-05-29 08:26 | Obstetrical Progress Note ---
Date of Service May 29, 2024 Assessment & Plan (1) Pre-eclampsia affecting , antepartum: Plan: Had one upper mild range bp but otherwise normotensive and not in treatable range so I think ok to dc w/o meds. Baby has appt [facility] w[facility] so will s end msg for bp check weds -reviewed nodule she is feeling is normal healing process of appropriately healing tear, reassured -pih precautions reviewed Admission and Anticipated Discharge Date Admission Date: May 27, 2024 Subjective Not much sleep overnight due to baby cluster feeding. Denies naranjo, vision change, cp, sob, ruq/epigastric pain -notes feeling a nodule near where tear was, wondering if needs to see derm Physical Exam Constitutional: WD/WN, vitals as above Respiratory: normal respiratory effort, lungs clear to auscultation Cardiovascular: RRR, no murmur, no edema Genitourinary: pt notes "nodule" - is area where stitches are healing appropriately from tear Results & Data Vital Signs (Past 12 Hours) Vital Signs Temp Pulse Resp BP Pulse Ox O2 Del Method 05/29/24 02:50 98.1 F 73 18 121/82 98 Room Air 05/28/24 23:25 98.2 F 87 18 138/84 97 Room Air PG Care Time/CCT Total # of Minutes Spent Total Time Spent with Patient: Total time spent is greater than 50% in coordination of care (as documented) at patient's floor/unit and/or counseling patient: Coding Level of Care Code None Diagnoses Pre-eclampsia affecting , antepartum O14.90
[2024-05-29 08:44] VITALS: BP 140/85
[2024-05-29 08:47] VITALS: PULSE 79
--- NOTE | 2024-05-30 14:15 | Discharge Summary ---
Date of Service May 30, 2024 Admission HPI Per Admitting Provider 33yo who is PPD#5 from with ~1L PPH managed by [facility] device and medical treatment. Has had 36 hours now of symptoms including fatigue, shakes, dizziness, nausea, just "not feeling right." Was seen in office 05/26 with 2x elevated blood pressure but at that time no other symptoms per note, so was managed outpatient with labs. Was given precautions and when symptoms from the precaution list presented she contacted o/c and was brought to ER. Presenting with RUQ pain, headache that is not typical for her and did not respond to tylenol at home. Swelling has improved since delivery. No vision changes. Hgb improved to 8.3 Plt 515 WBC 10.9 Coags WNL Cr 1.0 (POC) then serum 0.84, AST/ALT , TSH 3.7, Pr/Cr 0.6 (but clean catch nigh impossible ), CXR reassuring. Discharge Data Consultations 05/26/24 23:41 ED Decision to Admit Stat 05/27/24 02:10 ED Decision to Admit Stat Hospital Course (1) Pre-eclampsia affecting , antepartum: Patient was admitted and started on magnesium x 24hrs. Following dc, she had one upper elevated but not severe bps and otherwise normal to 140/70s so did not require additional treatment. She was discharged home and planned for f/u BP check on Coding Level of Care Code 75727 IN/OBS DISCH 30 MIN/LESS Diagnoses Pre-eclampsia affecting , antepartum O14.90
== END 2024-05-29 09:15 | disposition home or self-care (01) | DRG 776 ==
LOC: ED 21:43 → 4S1 05-27 01:32 → 4E2 05-28 02:52